=== PATIENT | male | born 1980 | race Two or more races ===

== ENCOUNTER 2022-05-09 00:02 | Emergency (ER) | payer OTHER ==
[~2022-05-09] VITALS: Ht 180.3 cm; Wt 120.5 kg
[2022-05-09] MEDS ORDERED: ONDANSETRON ODT 4 MG TAB PO ONE (00:45)
[2022-05-09] MEDS ORDERED: MORPHINE SULFATE INJ 2 MG/ml SYRG IM ONE (00:45)
[2022-05-09] MEDS ORDERED: HYDROmorphone HCL 2 MG/ML VL/or syr IM ONE (01:15)
[2022-05-09 01:52] LABS: Basophils # (auto) 0.1 10 ^3/uL (0-0.2); Basophils % (auto) 0.5 % (0.0-2.0); Eosinophils # (auto) 0.1 10 ^3/uL (0-0.8); Eosinophils % (auto) 0.5 % (0.0-7.0); Hematocrit 45.9 % (41.0-53.0); Hemoglobin 16.1 g/dL (13.5-17.5); Lymphocytes # (auto) 1.9 10 ^3/uL (0.4-5.4); Lymphocytes % (auto) 14.6 % (10.0-50.0); Mean Corpuscular Hemoglobin 29.2 pg (28.0-32.0); Mean Corpuscular Hgb Conc. 35.1 g/dL (32.0-36.0); Mean Corpuscular Volume 83.3 fL (80.0-100.0); Monocytes # (auto) 0.6 10 ^3/uL (0-1.3); Monocytes % (auto) 4.7 % (0.0-12.0); Neutrophils # (auto) 10.6 10 ^3/uL (1.6-8.6); Neutrophils % (auto) 79.7 % (37.0-80.0); Red Blood Cells 5.51 10^6/uL (4.5-5.90); Red Cell Distribution Width 13.6 % (11.8-14.3); White Blood Cell 13.3 10^3/uL (4.4-10.8)
[2022-05-09 02:01] LABS: BUN/Creatinine Ratio 14.8; Calcium 9.6 mg/dL (8.5-10.1); Potassium 3.8 mmol/L (3.5-5.1)
[2022-05-09 02:04] LABS: Bilirubin, Total 0.5 mg/dL (0.2-1.0); Total Protein 7.9 g/dL (6.4-8.2)
[2022-05-09 02:36] LABS: Urine Bacteria NONE SEEN /hpf (None Seen); Urine Blood 2+ /uL (Negative); Urine Specific Gravity 1.025 (1.001-1.035); Urine WBC 1 /hpf (0 - 3)
[2022-05-09] MEDS ORDERED: SODIUM CHLORIDE 0.9% 1,000 ML IV ONE (04:30)
[2022-05-09] MEDS ORDERED: cefTRIAXone 1GM/50ML D5W 50 ML IV ONE (04:30)
[2022-05-09] MEDS ORDERED: ONDANSETRON HCL 4 MG/2 ML VIAL IV ONE (04:30)
[2022-05-09] MEDS ORDERED: TAMSULOSIN HYDROCHLORIDE 0.4 MG CAP PO ONE (04:30)
[2022-05-09] MEDS ORDERED: PERCOT PO (04:44)
[2022-05-09] MEDS ORDERED: CIPR-173 PO (04:44)
[2022-05-09] MEDS ORDERED: TAM04C PO (04:44)
[2022-05-09] MEDS ORDERED: HYDROmorphone HCL 2 MG/ML VL/or syr IV ONE (04:45)
[2022-05-09 05:14] VITALS: BP 155/92
== END 2022-05-09 06:55 | disposition home or self-care (01) ==
LOC: ER 00:02
DX: R10.32 Left lower quadrant pain (principal); R11.0 Nausea; N50.812 Left testicular pain; Z79.899 Other long term (current) drug therapy
CPT/HCPCS: 36415; 74176; 80053; 81001; 82150; 83690; 85025; 96365; 96372; 96375; 99285; J0696; J1170; J2270; J2405; J7030; Q0162